=== PATIENT | female | born 1985 | race American Indian/Alaskan Native ===

== ENCOUNTER 2016-08-15 02:27 | Emergency (ER) | payer MEDICAID ==
[2016-08-15 02:32] VITALS: BMI 25.5
[2016-08-15 02:38] VITALS: O2SAT 100
--- NOTE | 2016-08-15 02:51 | ED PDOC ---
Arrival/HPI - General Chief Complaint: Abdominal Pain Time Seen by Provider: 08/15/16 02:28 Historian: Patient - History of Present Illness Narrative History of Present Illness (Text): 08/15/16 02:51 Xenia Rodriguez is a 30 year old female who presents to the Emergency department complaining of sudden onset of severe left flank pain radiating to abdomen since 00:45 today. Patient states she is currently , unsure how far along, but states she is scheduled for an in the morning. Patient denies any fever, chills, chest pain, shortness of breath, nausea, vomiting, diarrhea, urinary symptoms, neck pain, headache, dizziness, or any other complaints. Time/Duration: 1-3 hours (00:45) Symptom Onset: Sudden Severity Level: Severe Activities at Onset: Rest, Light Context: Home Past Medical History - Provider Review Nursing Documentation Reviewed: Yes - Psychiatric Hx Substance Use: No - Anesthesia Hx Anesthesia: No Hx Anesthesia Reactions: No Hx Malignant Hyperthermia: No Family/Social History - Physician Review Nursing Documentation Reviewed: Yes Family/Social History: No Known Family HX Smoking Status: Never Smoked Hx Alcohol Use: No Hx Substance Use: No Allergies/Home Meds Allergies/Adverse Reactions: Allergies No Known Allergies Allergy (Verified 08/15/16 02:31) Review of Systems - Physician Review All systems were reviewed & negative as marked: Yes - Review of Systems Constitutional: Normal. absent: Fevers Eyes: Normal ENT: Normal Respiratory: Normal. absent: SOB, Cough Cardiovascular: Normal. absent: Chest Pain Gastrointestinal: Abdominal Pain. absent: Diarrhea, Nausea, Vomiting Genitourinary Female: Normal. absent: Dysuria, Frequency, Hematuria, Urine Output Changes, Vaginal Bleeding, Vaginal Discharge Musculoskeletal: Back Pain (+left flank pain) Skin: Normal Neurological: Normal Endocrine: Normal Hemo/Lymphatic: Normal Psychiatric: Normal Physical Exam Vital Signs Reviewed: Yes Vital Signs Temp Pulse Resp BP Pulse Ox 08/15/16 04:41 97.3 F L 71 18 111/70 100 08/15/16 02:38 97.6 F 66 22 154/99 H 100 Temperature: Afebrile Blood Pressure: Normal Pulse: Regular Respiratory Rate: Normal Appearance: Positive for: Well-Appearing, Non-Toxic, Comfortable Pain Distress: Severe Mental Status: Positive for: Alert and Oriented X 3 - Systems Exam Head: Present: Atraumatic, Normocephalic Pupils: Present: PERRL Extroacular Muscles: Present: EOMI Conjunctiva: Present: Normal Mouth: Present: Moist Mucous Membranes Neck: Present: Normal Range of Motion Respiratory/Chest: Present: Clear to Auscultation, Good Air Exchange. No: Respiratory Distress, Accessory Muscle Use Cardiovascular: Present: Regular Rate and Rhythm, Normal S1, S2. No: Murmurs Abdomen: Present: Normal Bowel Sounds. No: Tenderness, Distention, Peritoneal Signs Back: Present: Paraspinal Tenderness (Left flank tenderness) Upper Extremity: Present: Normal Inspection. No: Cyanosis, Edema Lower Extremity: Present: Normal Inspection. No: Edema Neurological: Present: GCS=15, CN II-XII Intact, Speech Normal Skin: Present: Warm, Dry, Normal Color. No: Rashes Psychiatric: Present: Alert, Oriented x 3, Normal Insight, Normal Concentration Medical Decision Making ED Course and Treatment: 08/15/16 02:51 Impression: 30 year old female complaining of severe left flank pain radiating to abdomen since 00:45. Plan: -- Transvaginal US -- US Renal -- Labs, lipase, beta-HCG -- Urinalysis , urine drug screen -- IV fluids -- Toradol -- Reassess and disposition Progress Notes: 08/15/16 04:46 Reviewed sono, US Renal shows: Unremarkable retroperitoneal ultrasound, as detailed above. Transvaginal US shows: Intrauterine twin gestation with an approximate gestational age of 8 weeks and 5 days. cardiac activity is identified. 08/15/16 04:57 On re-evaluation, patient states she feels better, is pain free. Pt states she is scheduled for an later today. Pt stable for discharge. - Lab Interpretations Lab Results: 08/15/16 02:47 08/15/16 02:47 Lab Results 08/15/16 04:25: Urine Opiates Screen Negative, Urine Methadone Screen Negative, Ur Barbiturates Screen Negative, Ur Phencyclidine Scrn Negative, Ur Amphetamines Screen Negative, U Benzodiazepines Scrn Negative, U Oth Cocaine Metabols Negative, U Cannabinoids Screen Positive H 08/15/16 04:22: Urine Color Yellow, Urine Appearance Sl cloudy, Urine pH 8.0, Ur Specific [place] 1.010, Urine Protein Negative, Urine Glucose (UA) Negative, Urine Ketones Negative, Urine Blood Large H, Urine Nitrate Negative, Urine Bilirubin Negative, Urine Urobilinogen 0.2, Ur Leukocyte Esterase Negative, Urine RBC 25 - 30, Urine WBC 0 - 2, Ur Epithelial Cells 0 - 2, Urine Bacteria Rare, Urine HCG, Qual Positive 08/15/16 03:22: Blood Type A POSITIVE, Antibody Screen Negative, BBK History Checked No verified bt 08/15/16 02:47: WBC 8.6, RBC 4.01, Hgb 11.3 L, Hct 34.3 L, MCV 85.5, MCH 28.2, MCHC 32.9, RDW 14.3, Plt Count 245, MPV 9.3 08/15/16 02:47: Beta HCG, Quant 254925.00 H 08/15/16 02:47: Sodium 137, Potassium 3.3 L, Chloride 101, Carbon Dioxide 23, Anion Gap 16, BUN 10, Creatinine 0.7, Est GFR ( Amer) > 60, Est GFR (Non- Af Amer) > 60, Random Glucose 131 H, Calcium 9.1, Total Bilirubin 0.4, AST 26, ALT 30, Alkaline Phosphatase 50, Total Protein 7.7, Albumin 4.1, Globulin 3.6, Albumin/Globulin Ratio 1.1, Lipase 160 I have reviewed the lab results: Yes - RAD Interpretation Narrative RAD Interpretations (Text): US Renal shows: Right kidney: No stones. No solid mass. No hydronephrosis. Left kidney: No stones. No solid mass. No hydronephrosis. IMPRESSION: Unremarkable retroperitoneal ultrasound, as detailed above. Transvaginal shows: Gestation: A twin intrauterine gestation is identified. The approximate gestational age is 8 weeks and 5 days. cardiac activity is identified in the region of 156 per minute for twin A, and 162 beats per minute per twin B. The yolk sac of twin B is somewhat thickened. Placenta/amniotic fluid: Cannot be adequately evaluated due to the early gestational age. Uterus/cervix: No myometrial mass. Ovaries: The right ovary is unremarkable in echogenicity and size measuring 3.8 x 2.5 x 3.6 cm. The left ovary is unremarkable in echogenicity and size measuring 2.9 x 1.5 x 2.9 cm. Free fluid: No free fluid. IMPRESSION: Intrauterine twin gestation with an approximate gestational age of 8 weeks and 5 days. cardiac activity is identified. 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 - Medication Orders Current Medication Orders: Discontinued Medications Sodium Chloride (Sodium Chloride 0.9%) 1,000 mls @ 999 mls/hr IV .Q1H1M STA Stop: 08/15/16 03:52 Last Admin: 08/15/16 03:01 Dose: 999 mls/hr Ketorolac Tromethamine (Toradol) 30 mg IVP ONCE ONE Stop: 08/15/16 02:53 Last Admin: 08/15/16 03:01 Dose: Ketorolac Tromethamine (Toradol) Confirm Administered Dose 30 mg .ROUTE .STK- MED ONE Stop: 08/15/16 02:57 Last Admin: 08/15/16 03:00 Dose: 30 mg Potassium Chloride (K-Dur 20 Meq Er Tab) 20 meq PO STAT STA Stop: 08/15/16 04:51 Last Admin: 08/15/16 05:05 Dose: 20 meq - Scribe Statement The provider has reviewed the documentation as recorded by the Scribe Garima Salgado All medical record entries made by the Goldibgiuliano were at my direction and personally dictated by me. I have reviewed the chart and agree that the record accurately reflects my personal performance of the history, physical exam, medical decision making, and the department course for this patient. I have also personally directed, reviewed, and agree with the discharge instructions and disposition. Disposition/Present on Arrival - Present on Arrival Any Indicators Present on Arrival: No History of DVT/PE: No History of Uncontrolled Diabetes: No Urinary Catheter: No History of Decub. Ulcer: No History Surgical Site Infection Following: None - Disposition Have Diagnosis and Disposition been Completed?: Yes Diagnosis: Flank pain Disposition: HOME/ ROUTINE Disposition Time: 05:21 Patient Plan: Discharge Patient Problems: Current Active Problems Problem Status Onset Flank pain Acute Condition: GOOD Discharge Instructions (ExitCare): Flank Pain (ED) Additional Instructions: Drink plenty of liquids/follow up with your doctor as scheduled/any recurrent symptoms return to the emergency room Referrals: Michelle Nichols MD [Primary Care Provider] - Follow up with primary
[2016-08-15] MEDS ORDERED: Sodium Chloride 0.9% 1,000 ML IV STA (02:52)
[2016-08-15 03:16] LABS: ALB/GLOB RATIO 1.1 (1.1-1.8); ALKALINE PHOSPHATASE 50 U/L (38-133); ALT/SGPT 30 U/L (7-56); AST/SGOT 26 U/L (15-39); BILIRUBIN,TOTAL 0.4 mg/dL (0.2-1.3); BLOOD UREA NITROGEN 10 mg/dL (7-21); CALCIUM 9.1 mg/dL (8.4-10.5); CARBON DIOXIDE 23 mmol/L (21-33); CHLORIDE 101 mmol/L (98-107); GFR AFRICAN-AMERICAN > 60; GLUCOSE,RANDOM 131 mg/dL (70-110); LIPASE 160 U/L (23-300); POTASSIUM 3.3 mmol/L (3.6-5.0); SODIUM 137 mmol/L (132-148); TOTAL PROTEIN 7.7 g/dL (5.8-8.3)
[2016-08-15 03:33] LABS: HEMATOCRIT 34.3 % (36.0-48.0); MEAN CELL VOLUME 85.5 fL (80.0-105.0); MEAN CORPUSCULAR HEMOGLOBIN 28.2 pg (25.0-35.0); MEAN CORPUSCULAR HGB CONC 32.9 g/dl (31.0-37.0); WHITE BLOOD COUNT 8.6 10^3/ul (4.5-11.0)
[2016-08-15 03:34] LABS: MEAN PLATELET VOLUME 9.3 fl (7.0-11.0); RED CELL DISTRIBUTION WIDTH 14.3 % (11.5-14.5)
--- NOTE | 2016-08-15 04:39 | US ---
EXAM: US Retroperitoneal Limited, Renal CLINICAL HISTORY: 30 years old, female; Pain; Abdominal pain; Generalized; ; Additional info: Flank pain TECHNIQUE: Real-time ultrasound of the retroperitoneum (limited) with image documentation. COMPARISON: No relevant prior studies available. FINDINGS: Right kidney: No stones. No solid mass. No hydronephrosis. Left kidney: No stones. No solid mass. No hydronephrosis. IMPRESSION: Unremarkable retroperitoneal ultrasound, as detailed above.
[2016-08-15 04:42] VITALS: BP 111/70; PULSE 71; RESP 18; TEMP 97.3
--- NOTE | 2016-08-15 04:44 | US ---
EXAM: US , Transvaginal CLINICAL HISTORY: 30 years old, female; Pain; complicated by abdominal or pelvic pain; Generalized abdominal pain; First trimester; Gestational age or lmp: 06/15/2016; TECHNIQUE: Real-time transvaginal obstetrical ultrasound of the maternal pelvis and a first trimester with image documentation. Transvaginal imaging was used for better evaluation of the fetus and adnexa. COMPARISON: No relevant prior studies available. FINDINGS: Gestation: A twin intrauterine gestation is identified. The approximate gestational age is 8 weeks and 5 days. cardiac activity is identified in the region of 156 per minute for twin A, and 162 beats per minute per twin B. The yolk sac of twin B is somewhat thickened. Placenta/amniotic fluid: Cannot be adequately evaluated due to the early gestational age. Uterus/cervix: No myometrial mass. Ovaries: The right ovary is unremarkable in echogenicity and size measuring 3.8 x 2.5 x 3.6 cm. The left ovary is unremarkable in echogenicity and size measuring 2.9 x 1.5 x 2.9 cm. Free fluid: No free fluid. IMPRESSION: Intrauterine twin gestation with an approximate gestational age of 8 weeks and 5 days. cardiac activity is identified.
[2016-08-15 04:49] LABS: URINE BILIRUBIN NEGATIVE (NEGATIVE); URINE BLOOD LARGE (NEGATIVE); URINE GLUCOSE (UA) NEGATIVE (NEGATIVE); URINE KETONE NEGATIVE (NEGATIVE); URINE LEUKOCYTE ESTERASE NEGATIVE Leu/uL (NEGATIVE); URINE PROTEIN NEGATIVE mg/dL (<30 mg/dL); URINE UROBILINOGEN 0.2 E.U./dL (<1 E.U./dL)
[2016-08-15] MEDS ORDERED: Potassium Chloride 20 mEq ER Tab PO STA (04:50)
[2016-08-15 04:58] LABS: URINE APPEARANCE SL CLOUDY (CLEAR); URINE COLOR YELLOW (YELLOW)
[2016-08-15 05:13] LABS: URINE BACTERIA RARE (NEG); URINE EPITHELIAL CELLS 0 - 2 /hpf (0-5); URINE RBC 25 - 30 /hpf (0-2); URINE WBC 0 - 2 /hpf (0-6)
== END 2016-08-15 05:36 | disposition home or self-care (01) ==
LOC: MERGE 02:27 → ED 02:27
DX: R10.9 Unspecified abdominal pain (principal)
CPT/HCPCS: 76770; 76817; 80053; 80324; 80345; 80346; 80349; 80353; 80358; 80361; 81001; 83690; 83992; 84702; 84703; 85027; 86850; 86900; 99283; J1885; J7040